=== PATIENT | female | born 1980 | race Asian ===

== ENCOUNTER 2018-04-12 03:50 | Emergency (ER) | payer OTHER ==
[2018-04-12 04:54] LABS: INR 0.93 (0.77-1.02)
[2018-04-12 05:07] LABS: EGFR Non-African American 70.5 (>60)
[2018-04-12 05:17] LABS: ABS Basophils 0 10^3/ul (0-0.2); ABS Eosinophils 0.1 10^3/ul (0-0.6); ABS Lymphocytes 0.7 10^3/ul (1.0-4.8); ABS Monocytes 0.8 10^3/ul (0-0.8); ABS Neutrophils 8.8 10^3/ul (1.5-7.7); ABS Nucleated RBC 0 10^3/ul; Eosinophil % 0.5 % (0-6); Hematocrit 38 % (35-47); Hemoglobin 12.5 g/dl (12.0-16.0); Lymphocyte % 6.7 % (25-47); Mean Corpuscular HGB Conc 33 g/dl (31-36); Mean Corpuscular Hemoglobin 28 pg (27-31); Mean Corpuscular Volume 86 fL (80-97); Mean Platelet Volume 8.5 um3 (7.4-10.4); Nucleated Red Blood Cells % 0.1; Platelet Count 197 10^3/ul (150-450); Red Blood Count 4.49 10^6/ul (4.00-5.40); Red Cell Distribution Width 16 % (10.5-15); White Blood Count 10.4 10^3/ul (3.5-10.8)
[2018-04-12 05:36] LABS: Urine Appearance Cloudy; Urine Blood 2+ (Negative); Urine Color Yellow; Urine Ketones Negative (Negative); Urine Protein 1+(30 mg/dL) (Negative); Urine Urobilinogen Negative (Negative)
[2018-04-12] MEDS ORDERED: Sulfamethox/Trimethoprim DS 800/160* TAB PO ONE (05:52)
[2018-04-12 06:23] VITALS: BP 105/69
--- NOTE | 2018-04-12 08:53 | RAD ---
Indication: Right flank pain. 2 views of the chest including dual energy PA views demonstrates no mediastinal shift. Heart is of normal size and configuration. Lung lundy are clear. When compared to previous exam of November 10, 2011 no significant change is noted. IMPRESSION: No active cardiopulmonary disease is noted.
--- NOTE | 2018-04-12 09:02 | RAD ---
Indication: Right flank pain. CT of the abdomen and pelvis was performed without oral or IV contrast administration. Coronal and sagittal reconstructed images were obtained. Lung bases demonstrate no pleural fluid, nodules or masses. Heart is of normal size without evidence of pericardial effusion. Liver is normal in size. No focal lesions or intrahepatic duct dilatation is noted. The spleen is normal in size. Common duct is not dilated. The gallbladder demonstrates no gallstones, pericholecystic fluid or wall thickening. Pancreas demonstrates no mass or pancreatic duct dilatation. No adrenal lesions are noted. The kidneys demonstrate no hydronephrosis or hydroureter in either kidney. Aorta and inferior vena cava are unremarkable. No retroperitoneal lymphadenopathy is noted. No dilated loops of bowel are noted. The appendix is air-filled. No dilated loops of bowel are noted. The uterus demonstrates enlargement with tubal ligation clips. No hernias are noted. IMPRESSION: No abnormal masses or fluid collections are noted.
--- NOTE | 2018-04-13 14:06 | ED ---
Bandar Mary Rebecca, scribed for Tiffany Lainezuel on 04/12/18 at 0421 . Abdominal Pain/Female - HPI Summary HPI Summary: Pt is a 38 y/o F who presents to ED c/o R flank pain. Sx began on (3 days ago), initially mild and gradually worsening, especially last night. On triage, pain is severe, ranked 9/10. Sx aggravated and alleviated by nothing. Additionally c/o diffuse myalgias. Denies vaginal bleeding and vaginal discharge. No PMHx kidney stones. PSHx tubal ligation. - History of Current Complaint Chief Complaint: EDUrogenitalProblems Stated Complaint: RIGHT SIDE PAIN Time Seen by Provider: 04/12/18 04:06 Hx Obtained From: Patient Onset/Duration: Lasting Days - 3 days, Still Present, Worse Since - Last night Severity Currently: Severe Pain Intensity: 9 Pain Scale Used: 0-10 Numeric Location: Flank - Right Aggravating Factor(s): Nothing Alleviating Factor(s): Nothing Associated Signs and Symptoms: Negative: Vaginal Bleeding, Vaginal Discharge Allergies/Adverse Reactions: Allergies Allergy/AdvReac Type Severity Reaction Status Date / Time ibuprofen Allergy Unknown GI Upset Verified 04/12/18 05:11 Home Medications: Home Medications Acetaminophen [Tylophen] 2 cap PO Q6HR PRN 04/12/18 [History Confirmed 04/12/18] Cholecalciferol (Vitamin D3) [Vitamin D3] 50,000 units PO MONTHLY 04/12/18 [ History Confirmed 04/12/18] PMH/Surg Hx/FS Hx/Imm Hx History: Denies: Hx Kidney Stones Sensory History: Denies: Hx Contacts or Glasses, Hx Hearing Aid Opthamlomology History: Denies: Hx Contacts or Glasses - Surgical History Surgery Procedure, Year, and Place: WISDOM TEETH REMOVED. LYMPH NODE RIGHT ARM PIT REMOVED Hx Anesthesia Reactions: No Infectious Disease History: No Infectious Disease History: Denies: Traveled Outside the [place] in Last 30 Days - Family History Known Family History: Positive: Other - Environmental allergies - Social History Alcohol Use: None Substance Use Type: Reports: None Smoking Status (MU): Never Smoked Tobacco Have You Smoked in the Last Year: No Review of Systems Negative: Fever Positive: flank pain - R flank pain, other - NEGATIVE: Vaginal bleeding and discharge Positive: Myalgia - Diffuse All Other Systems Reviewed And Are Negative: Yes Physical Exam - Summary Physical Exam Summary: Appearance: Well appearing, no pain distress Skin: warm, dry, reflects adequate perfusion Head/face: normal Eyes: EOMI, KARIN ENT: normal Neck: supple, non-tender Respiratory: CTA, breath sounds present Cardiovascular: RRR, pulses symmetrical Abdomen: non-tender, soft Bowel: present Musculoskeletal: R CVA tenderness, strength/ROM intact Neuro: normal, sensory motor intact, A&Ox3 Triage Information Reviewed: Yes Vital Signs On Initial Exam: Initial Vitals Temp Pulse Resp BP Pulse Ox 97.3 F 89 16 105/80 99 04/12/18 03:56 04/12/18 03:56 04/12/18 03:56 04/12/18 03:56 04/12/18 03:56 Vital Signs Reviewed: Yes Diagnostics - Vital Signs Vital Signs Temp Pulse Resp BP Pulse Ox 04/12/18 03:56 97.3 F 89 16 105/80 99 - Laboratory Result Diagrams: 04/12/18 04:26 04/12/18 04:26 Lab Statement: Any lab studies that have been ordered have been reviewed, and results considered in the medical decision making process. - Radiology CXR Xray Interpretation: No Acute Changes Radiology Interpretation Completed By: ED Physician - CT CT Abd/Pel CT Interpretation: No Acute Changes - No localizing signs for acute pathology. ED physciain reviewed this report. CT Interpretation Completed By: Radiologist Re-Evaluation - Re-Evaluation First Eval Re-Evaluation Time: 06:11 Comment: Discussed results and D/C plan. Requesting work note. Abdominal Pain Fem Course/Dx - Course Course Of Treatment: Pt is a 38 y/o F who presents to ED c/o R flank pain for 3 days, gradually worsening, currently severe, ranked 9/10. Additionally c/o diffuse myalgias. Denies vaginal bleeding and vaginal discharge. No PMHx kidney stones. CT Abd/Pel and CXR reveal no acute findings. Blood work was done with results including WBC of 10.4, potassium of 3.4, troponin of 0.00 and Beta HCG < 0.6. UA showed 1+ protein, 2+ blood, positive nitrate, 3+ leukocyte esterase, 3 + WBC, 3+ RBC with squamous epithelial cells and transition epithelial cells present, absent for bacteria. In the ED course, pt received Bactrim. She will be D/C to home with Dx of UTI with a follow up with her PCP and Rx for Bactrim. Pt is agreeable with this plan. Allergy noted. - Diagnoses Provider Diagnoses: UTI (urinary tract infection) Discharge - Sign-Out/Discharge Documenting (check all that apply): Discharge/Admit/Transfer - Discharge - Discharge Plan Condition: Stable Disposition: HOME Patient Education Materials: Urinary Tract Infection in Women (ED) Forms: *Work Release Referrals: Chiquis Daniels MD [Primary Care Provider] - 3 Days Additional Instructions: RETURN TO ED FOR ANY NEW OR WORSENING SYMPTOMS. The documentation as recorded by the Bandar masterson Rebecca accurately reflects the service I personally performed and the decisions made by Fatou collins Emmanuel.
--- NOTE | 2018-04-14 07:22 | PN ---
Progress Note - Progress Note Date of Service: 04/12/18 Note: Urine culture preliminary grew Enterobacter aerogenes Patient placed on Bactrim prior to discharge We'll await sensitivities at this time
--- NOTE | 2018-04-15 07:35 | PN ---
Progress Note - Progress Note Date of Service: 04/12/18 Note: Patient placed on Bactrim prior to discharge. Sensitive to organism. Nothing further.
== END 2018-04-12 06:29 | disposition home or self-care (01) ==
LOC: ED 03:50
DX: N39.0 Urinary tract infection, site not specified (principal); B96.89 Other specified bacterial agents as the cause of diseases classified elsewhere
CPT/HCPCS: 36415; 71046; 74176; 80053; 81003; 81015; 83690; 84484; 84702; 85025; 85610; 85730; 87077; 87086; 87186; 99283; A9270-GY